=== PATIENT | female | born 2000 | race Caucasian/White ===

== ENCOUNTER 2021-04-28 19:55 | Emergency (ER) | payer OTHER, BC ==
[~2021-04-28] VITALS: Ht 160 cm; Wt 41.3 kg
[2021-04-28] MEDS ORDERED: IBUPROFEN IB200 MG PO (20:38)
[2021-04-28] MEDS ORDERED: ACETAMINOPHEN500 MG PO (20:38)
== END 2021-04-28 21:20 | disposition home or self-care (01) ==
LOC: FSED 20:04
DX: M79.671 Pain in right foot (principal); S93.601A Unspecified sprain of right foot, initial encounter; V47.5XXA Car driver injured in collision with fixed or stationary object in traffic accident, initial encounter; Y92.89 Other specified places as the place of occurrence of the external cause; K90.0 Celiac disease; H81.09 Meniere's disease, unspecified ear
CPT/HCPCS: 99283

== ENCOUNTER 2023-03-21 14:44 | Emergency (ER) | payer BC ==
[~2023-03-21] VITALS: Ht 160 cm; Wt 41.3 kg
[2023-03-21 14:44] VITALS: O2SAT 100
[~2023-03-21 14:44] MED LIST: ACETAMINOPHEN500 MG PO; IBUPROFEN IB200 MG PO
[2023-03-21] MEDS ORDERED: PROMETHAZINE HC25 M1 PO (15:36)
== END 2023-03-21 15:47 | disposition home or self-care (01) ==
LOC: ER 14:50
DX: R42 Dizziness and giddiness (principal); R11.2 Nausea with vomiting, unspecified
CPT/HCPCS: 71045; 93005; 99284